=== PATIENT | female | born 1975 | race Caucasian/White ===

== ENCOUNTER → 2018-08-23 | Outpatient (CLI) | payer OTHER ==
[2005-10-05 07:00] VITALS: PULSE 72; TEMP 98.3
[~2018-08-23] MED LIST: NO HOME MEDICATIONS; PERCOCET 325 MG1 TA2 PO; PHENERGAN 25 TA25 MG PO; PHENERGAN25 MG RC
== END ==
LOC: MC.RAD 07:13
DX: Z12.31 Encounter for screening mammogram for malignant neoplasm of breast (principal)

== ENCOUNTER 2018-11-22 16:00 | Outpatient (RCR) | payer OTHER ==
[2005-10-05 07:00] VITALS: PULSE 72; TEMP 98.3
== END 2019-01-16 | disposition home or self-care (01) ==
LOC: WSPT
DX: M77.11 Lateral epicondylitis, right elbow (principal)

== ENCOUNTER → 2020-08-09 | Outpatient (CLI) | payer OTHER ==
[2005-10-05 07:00] VITALS: PULSE 72; TEMP 98.3
== END ==
LOC: MC.RAD 08-05 15:45
DX: Z12.31 Encounter for screening mammogram for malignant neoplasm of breast (principal)

== ENCOUNTER → 2022-01-27 | Outpatient (CLI) | payer OTHER ==
[2005-10-05 07:00] VITALS: TEMP 98.3
== END ==
LOC: MC.RAD 07:02
DX: Z12.31 Encounter for screening mammogram for malignant neoplasm of breast (principal)

== ENCOUNTER 2023-10-25 06:58 | Day surgery (SDC) | payer OTHER ==
[~2023-10-25] VITALS: Ht 157.5 cm; Wt 48.5 kg
[~2023-10-25 06:58] MED LIST changes: +LR 1,000 ML IV SCH; +Ondansetron 4 MG/2 ML VIAL IV PRN
[2023-10-25] MEDS ORDERED: Lidocaine PF 2% (20 MG/ML) 5 ML VIAL ONE (08:21)
[2023-10-25] MEDS ORDERED: fentaNYL 50 MCG/ML 2 ML VIAL ONE (08:21)
[2023-10-25] MEDS ORDERED: Ondansetron 4 MG/2 ML VIAL ONE (08:39)
[2023-10-25 09:10] VITALS: BP 104/68; PULSE 67; TEMP 97.6
[2023-10-25 09:15] VITALS: BP 103/66; PULSE 58
--- NOTE | 2023-10-25 09:59 | NUR ---
0910- PT RETURNS FORM INDO PROCEDURE VIA CART AND RN ASSIST TO [facility]. PT AMBULATES FROM CART TO RECLINER WITH ASSIST. MONITORS ON AND ALARMS SET. CALL LIGHT WITHIN REACH. REPORT RECEIVED FROM BEVERLY LENNON. PT ALERT AND ORIENTED. PT REQUESTS WATER. PT DENIES ANY PAIN OR NAUSEA. 0915- PT TAKING FODD AND DRINK WELL. NO COMPLICATIONS NOTED. 0935- IV DC'D AT THIS TIME. TIP INTACT. 0945- DISCHARGE INSTRUCTIONS GIVEN TO PT. ALL QUESTIONS ANSWERED. 0955- PT TRANSFERRED OUT OF THE HOSPITAL VIA WHEELCHAIR. TRANSFERED TO PERSONAL VEHICLE DRIVEN BY .
[2023-10-25 11:03] VITALS: BP 109/65; PULSE 52; TEMP 98.5
== END 2023-10-25 09:55 ==
LOC: SDCO 06:58
DX: Z12.11 Encounter for screening for malignant neoplasm of colon (principal); K57.30 Diverticulosis of large intestine without perforation or abscess without bleeding
CPT/HCPCS: J2405; J2704; J3010; J7120

== ENCOUNTER → 2024-04-09 | Outpatient (CLI) | payer OTHER ==
[2005-10-05 07:00] VITALS: TEMP 98.3
[~2024-04-09] MED LIST changes: -LR 1,000 ML IV SCH; +NS IV SCH; -Ondansetron 4 MG/2 ML VIAL IV PRN; +PRILOSEC 20MG20 MG PO; +SINCALIDE IV SCH
== END ==
LOC: COL.RAD 09:11
DX: R10.13 Epigastric pain (principal); R11.0 Nausea; R16.0 Hepatomegaly, not elsewhere classified; R74.8 Abnormal levels of other serum enzymes
CPT/HCPCS: A9537-JZ; J2805